=== PATIENT | male | born 1985 | race Caucasian/White ===

== ENCOUNTER → 2018-07-07 13:46 | Outpatient (CLI) | payer MEDICAID, SELFPAY ==
[2018-06-23 14:46] VITALS: BMI 32.0
[2018-06-27 13:50] LABS: Anion Gap 5 (5-15); BUN 12 mg/dL (7-18); BUN/Creat Ratio 13.4 RATIO (10-20); Chloride 108 mmol/L (98-107); Creatinine, Serum 0.89 mg/dL (0.70-1.30); EST Glomerular Filtration Rate 104 mL/min (>60); Est Glom Filt Rate - Afr Amer 125 mL/min (>60); Glucose 101 mg/dL (74-106); Potassium 4.4 mmol/L (3.5-5.1); Sodium Level 140 mmol/L (136-145)
--- NOTE | 2018-07-07 13:48 | CT_ITS ---
STUDY: CT ABDOMEN AND PELVIS WITH CONTRAST REASON FOR EXAM: Male, 33 years old. Left lower quadrant pain for several years. RADIATION DOSAGE (If Supplied By Facility): CTDIvol = ( 16.33 ) mGy, DLP = ( 1285.80 ) mGycm TECHNIQUE: Transaxial images were obtained from the dome of the diaphragm to the symphysis pubis without oral contrast. 100 ml of Isovue 300 contrast was administered. Sagittal and coronal images were reconstructed. Individualized dose optimization techniques were used for this CT. COMPARISON: None. FINDINGS: Body wall soft tissues: No acute process. Osseous structures: No acute process. Inferior chest: No acute process. Hepatobiliary: Normal. Pancreas: No acute process. Spleen: Normal. Adrenal glands: Normal. Urogenital: Normal kidneys with normal extrarenal pelvises. Normal collecting systems, ureters, urinary bladder, prostate and seminal vesicles. Pelvic floor and sidewalls and retroperitoneum: No mass or adenopathy. Vasculature: No acute process. Stomach: No acute process. Small bowel and mesentery: No acute process. Large bowel: Normal appendix. Moderately prominent distributed stool burden of large bowel. Correlate for constipation. No evidence of colitis or diverticulitis. Normal rectum. Free fluid or free air: None. CT/Abdomen/Pelvis WITH Contrast IMPRESSION: No acute abdominopelvic process is evident. Electronically Signed: Cesar Escobar MD at 9:42 EST Tel , Service support ,
== END ==
PROVIDERS: Family Provider Family Medicine; PCP Family Medicine; Referring Provider Family Medicine; Visit Provider Family Medicine
DX: R10.32 Left lower quadrant pain (principal)
CPT/HCPCS: 36415; 74177; 80048; Q9967

== ENCOUNTER 2021-04-25 15:46 | Emergency (ER) | payer MEDICAID, SELFPAY ==
[2021-04-25 15:47] VITALS: BP 165/103; PULSE 90; PULSE 95; RESP 16; TEMP 36.7; O2SAT 100; BMI 33.2
--- NOTE | 2021-04-25 16:35 | EDS_ITS ---
HPI History of Present Illness Chief Complaint: Lower Extremity Injury Narrative Narrative: 35-year-old male presenting with left gluteal pain which radiates down the posterior hamstring. Patient states this has been a problem for 3 days. 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 Patient states he carries his wallet in his left pocket. Patient states he was seen at urgent care and they started to tell him about the possibility of infection and he became anxious. He does have a history of anxiety. Patient's blood pressures were elevated there and then came back down to normal. Patient states he feels much better. Patient does admit that he might of had some burning in his urine yesterday but has no history of kidney stones, hematuria. He is not had any fever or chills. Patient denies any trauma or injury. PFSH PFS Medical History Anxiety Back problem Bone fracture Esophageal ulcer History of forearm fracture Seasonal allergies Home Medications alprazolam 0.5 mg tablet 0.5 mg PO DAILY PRN #5 tab 11/18/18 [Rx Last Taken Unknown] cyclobenzaprine 10 mg PO TID PRN #20 tablet 04/25/21 [Rx Last Taken Unknown] ibuprofen 200 mg capsule 200 mg PO Q6H PRN 04/25/21 [History Last Taken Unknown] naproxen 500 mg PO BID PRN #20 tab 04/25/21 [Rx Last Taken Unknown] Allergy/AdvReac Type Severity Reaction Status Date / Time clindamycin Allergy Mild stomach Verified 04/25/21 14:42 issues Family History Aunt Alcoholism Breast cancer Depression Grandfather Cancer Myocardial infarction Uncle Cancer Father Hypertension Surgical History History of hernia repair Social History Smoking Status: Former smoker how long ago did patient quit smokin alcohol intake: current alcohol intake frequency: a few times a week substance use type: does not use what type of physical activity do you participate in: bicycling ROS ROS ED Constitutional Constitutional ED: Denies chills or fever(s) Eyes Eyes: Denies blurry vision or change in vision ENT ENT ED: Denies rhinorrhea or sore throat Cardiovascular Cardiovascular: Reports palpitations; Denies chest pain Respiratory/Chest Respiratory/Chest: Denies cough or dyspnea Gastrointestinal Gastrointestinal: Denies abdominal pain, nausea or vomiting Genitourinary Genitourinary ED: Reports dysuria; Denies hematuria or urinary frequency Musculoskeletal Musculoskeletal: Reports other Details: Left gluteal pain radiating down the left hamstring Integumentary Denies Abrasions or rash Neurologic Neurologic: Reports paresthesias LLE; Denies headache(s) Psychiatric Psychiatric: Reports anxiety; Denies depression EXAM Physical Exam Const Vital Signs: 04/25/21 15:47 04/25/21 18:40 Temperature 98.1 F Temperature Source Temporal Pulse Rate 95 Respiratory Rate 16 Blood Pressure 165/103 H 153/100 H Blood Pressure Mean 123 117 Pulse Ox 100 Oxygen Delivery Method Room Air Positive well nourished General Appearance ED: NAD HEENT Reports moist mucous membranes normocephalic and atraumatic Eyes PERRL Resp normal respiratory effort and clear to auscultation bilaterally Cardio regular rate and regular rhythm Back/Spine no CVA tenderness Lumbar Spine / Lower Back: lumbar spinal tenderness Extremity Extremity Narrative: Tenderness to palpation over the left gluteal muscle. Patient has difficulty standing secondary to muscle spasm in this area. He can bear weight. Neuro oriented x3, CN's II-XII intact bilaterally and moves all extremities Sensorium / Orientation: alert Motor Exam: strength 5/5 throughout Psych mental status grossly normal Skin Lesions: no lesions Rashes: no rashes MDM MDM MDM Narrative Medical decision making narrative: Patient presenting with what appears to be howard sciatic pain. I am able to reproduce this. Patient having typical pain radiation down the posterior thigh on the left. Patient does report that he was sweaty and nauseous at the urgent care office. I did check a urinalysis which showed a small amount of occult blood. For this reason CT of the abdomen pelvis was performed. This does not show any acute kidney stone. Patient initially treated with Norflex and Toradol. He states his pain was still present he was given a dose of IM morphine. Patient counseled he will be discharged home on cyclobenzaprine and Naprosyn. He is to continue with stretching and icing as needed. I recommended he follow-up with his primary care provider to ensure re solution. Impression: 1. Sciatica 2. Hematuria Lab Data Attestation: I reviewed the patient's lab results. Labs: Laboratory Results - last 24 hr 04/25/21 17:34 Urine Color Yellow Urine Clarity Clear Urine pH 6.5 Ur Specific [place] 1.010 Urine Protein Negative Urine Glucose (UA) Normal Urine Ketones Negative Urine Occult Blood 25 H Urine Nitrite Negative Urine Bilirubin Negative Urine Urobilinogen Normal Ur Leukocyte Esterase Negative Urine RBC 0 SEEN Urine WBC 0 SEEN Ur Squamous Epith Cells 0 SEEN Urine Bacteria 0 SEEN Urine Mucus 0 SEEN Radiography Diagnostic Testing: Clinical Impression(s) from Imaging Studies Abdomen/Pelvis CT 04/25/21 18:13 IMPRESSION: Normal abdomen without acute disease. Electronically Signed: Óscar Parsons MD at 19:10 EDT Tel , Service support , Discharge Plan Triage Chief Complaint: Lower Extremity Injury ED Provider: Amando Antoine Dx/Rx/DC Orders Instructions: ED Hematuria, ED Sciatica Prescriptions: New cyclobenzaprine 10 mg tablet 10 mg PO TID PRN (Reason: Muscle Spasm) Qty: 20 RF: 0 naproxen 500 mg tablet 500 mg PO BID PRN (Reason: pain) Qty: 20 RF: 0 No Action alprazolam [Xanax] 0.5 mg tablet 0.5 mg PO DAILY PRN (Reason: anxiety) Qty: 5 RF: 0 ibuprofen 200 mg capsule 200 mg PO Q6H PRNRF: 0 Primary Care Provider: Jamshid Orellana Referrals: Jamshid Orellana, DO [Primary Care Provider] - Disposition Disposition: Home, Self Care
[2021-04-25] MEDS: Orphenadrine 60 MG/2 ML Ampul IM (17:28)
[2021-04-25] MEDS: Ketorolac 15 MG/ML Vial IM (17:29)
[2021-04-25 17:39] LABS: Bacteria 0 SEEN /hpf (None Seen); Mucous, Urine 0 SEEN /hpf (<or=2+); Red Blood Cells-Urine 0 SEEN /hpf (0-5); Squamous Epithelial Cells - UA 0 SEEN /hpf (0-5); White Blood Cells 0 SEEN /hpf (0-5)
[2021-04-25 17:44] LABS: Color, Urine Yellow (Yellow); Glucose, Dipstick Normal (Normal); Ketone-Dipstick Negative (Negative); Leukocyte Esterase-Dipstick Negative /ul (Negative); Nitrite-Dipstick Negative (Negative); Occult Blood-Urine 25 /ul (Negative); Protein-Dipstick Negative (Negative); Urine Bilirubin Dipstick Negative (Negative); Urine Clarity Clear (Clear); Urine Urobilinogen Normal (Normal); Urine pH 6.5 (5.0 - 8.0)
--- NOTE | 2021-04-25 18:13 | CT_ITS ---
STUDY: CT ABDOMEN AND PELVIS WITHOUT CONTRAST REASON FOR EXAM: Male, 35 years old. Left flank pain and microscopic hematuria RADIATION DOSAGE (If Supplied By Facility): CTDIvol = ( 15.95 ) mGy, DLP = ( 860.94 ) mGycm TECHNIQUE: Transaxial images were obtained from the dome of the diaphragm to the symphysis pubis without oral contrast, and without intravenous contrast. Sagittal and coronal images were reconstructed. Individualized dose optimization techniques were used for this CT. COMPARISON: 07 July 2018 FINDINGS: The visualized lung bases are unremarkable. The visualized portions of the heart are within normal limits. Normal liver. Normal gallbladder and extrahepatic biliary system. Normal spleen. Normal pancreas. Normal bilateral adrenal glands. 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 Renal parenchyma is normal. Normal visualized stomach. Normal small intestine. Normal colon. Appendix is normal and contains an appendicolith. Normal abdominal aorta. Normal inferior vena cava. Normal retroperitoneum. Normal urinary bladder. Normal abdominal wall. Normal osseous structures. There are early degenerative changes in the lumbar spine and a benign L4 hemangioma. CT/Abdomen/Pelvis without Cont IMPRESSION: Normal abdomen without acute disease. Electronically Signed: Óscar Parsons MD at 19:10 EDT Tel , Service support ,
[2021-04-25 18:40] VITALS: BP 153/100
[2021-04-25] MEDS: Morphine 4 MG/ML Syringe IM (19:27)
== END 2021-04-25 19:50 | disposition home or self-care (01) ==
PROVIDERS: Emergency Provider Student in an Organized Health Care Education/Training Program; PCP Family Medicine
DX: M54.42 Lumbago with sciatica, left side (principal); R31.29 Other microscopic hematuria; F41.9 Anxiety disorder, unspecified; Z79.899 Other long term (current) drug therapy; Z87.891 Personal history of nicotine dependence
CPT/HCPCS: 74176; 81001; 96372; 99282

== ENCOUNTER 2021-08-13 09:42 | Outpatient (CLI) | payer MEDICAID, SELFPAY ==
[2021-08-13 12:14] LABS: Absolute Lymphocyte Count 2.49 X10^3/uL (0.83-4.51); Basophil# 0.04 X10^3/uL; Basophil% 0.5 % (0-1); Eosinophil# 0.16 X10^3/uL; Eosinophils% 2.2 % (0-5); Hematocrit 43.2 % (40-54); Hemoglobin 14.5 g/dL (13.0-16.5); Lymphocyte # 2.49 X10^3/ul (0.83-4.51); Lymphocyte % 33.9 % (19-41); Mean Corp Hgb Conc 33.6 g/dL (32-36); Mean Corpuscular Hgb 31.6 pg (27.0-32.0); Mean Corpuscular Volume 94.1 fL (80-94); Mean Platelet Vol. 9.6 fl (6.2-12.0); Monocyte% 8.2 % (0-10); NRBC Flagged by Analyzer 0 % (0-5); Neutrophil # 4.04 X10^3/uL (2.7-7.7); Neutrophil % 54.9 % (47-70); Platelet Count 284 K/mm3 (150-450); RBC Distribution Width CV 12.5 % (11.6-14.6); RBC Distribution Width SD 43.3 fl (35.1-43.9); Red Blood Count 4.59 M/mm3 (4.6-6.2); White Blood Count 7.4 K/mm3 (4.4-11.0)
[2021-08-13 12:28] LABS: ALB/GLOB Ratio 1.1 RATIO (0.9-2.4); AST(SGOT) 17 U/L (15-37); Alanine Aminotransfer ALT/SGPT 40 U/L (16-61); Albumin, Serum 4.1 g/dL (3.2-5.0); Alkaline Phosphatase 57 U/L (45-117); Anion Gap 9 (5-15); BUN 17 mg/dL (7-18); BUN/Creat Ratio 18.7 RATIO (10-20); Calcium,Total 9.4 mg/dL (8.5-10.1); Chloride 105 mmol/L (98-107); Creatinine, Serum 0.91 mg/dL (0.70-1.30); EST Glomerular Filtration Rate 100 mL/min (>60); Est Glom Filt Rate - Afr Amer 121 mL/min (>60); Globulin 3.8 g/dL (2.2-4.2); Glucose 109 mg/dL (74-106); Potassium 4.1 mmol/L (3.5-5.1); Protein, Total 7.9 g/dL (6.4-8.2); Sodium Level 139 mmol/L (136-145)
== END 2021-08-13 23:59 | disposition short-term general hospital (02) ==
LOC: BIMLAB 09:43
PROVIDERS: PCP Family Medicine; Referring Provider Family Medicine; Visit Provider Family Medicine
DX: I10 Essential (primary) hypertension (principal)
CPT/HCPCS: 36415; 80053; 85025

== ENCOUNTER → 2022-11-05 | Outpatient (CLI) | payer MEDICAID, SELFPAY ==
[2022-11-05 16:36] LABS: Absolute Lymphocyte Count 1.85 X10^3/uL (0.83-4.51); Absolute Neutrophil Count 4.1 X10^3/uL (2.0-7.7); Basophil# 0.03 X10^3/uL; Basophil% 0.5 % (0-1); Eosinophil# 0.05 X10^3/uL; Eosinophils% 0.8 % (0-5); Hematocrit 46.9 % (40-54); Hemoglobin 15.6 g/dL (13.0-16.5); Lymphocyte # 1.85 X10^3/ul (0.83-4.51); Lymphocyte % 28.4 % (19-41); Mean Corp Hgb Conc 33.3 g/dL (32-36); Mean Corpuscular Hgb 31.8 pg (27.0-32.0); Mean Corpuscular Volume 95.5 fL (80-94); Mean Platelet Vol. 9.1 fl (6.2-12.0); Monocyte# 0.44 X10^3/uL; Monocyte% 6.7 % (0-10); NRBC Flagged by Analyzer 0 % (0-5); Neutrophil # 4.13 X10^3/uL (2.7-7.7); Neutrophil % 63.3 % (47-70); Platelet Count 261 K/mm3 (150-450); RBC Distribution Width CV 12.6 % (11.6-14.6); RBC Distribution Width SD 43.8 fl (35.1-43.9); Red Blood Count 4.91 M/mm3 (4.6-6.2); White Blood Count 6.5 K/mm3 (4.4-11.0)
[2022-11-05 17:06] LABS: Vitamin B12 416 pg/mL (211-911); Vitamin D,25 Hydroxy 25.6 ng/mL
[2022-11-05 17:12] LABS: ALB/GLOB Ratio 1.2 RATIO (0.9-2.4); AST(SGOT) 18 U/L (15-37); Alanine Aminotransfer ALT/SGPT 37 U/L (16-61); Albumin, Serum 4.6 g/dL (3.2-5.0); Alkaline Phosphatase 44 U/L (45-117); Anion Gap 4 (5-15); BUN 13 mg/dL (7-18); BUN/Creat Ratio 14.3 RATIO (10-20); Calcium,Total 9.7 mg/dL (8.5-10.1); Chloride 104 mmol/L (98-107); Creatinine, Serum 0.91 mg/dL (0.70-1.30); EST Glomerular Filtration Rate 99 mL/min (>60); Est Glom Filt Rate - Afr Amer 119 mL/min (>60); Globulin 3.9 g/dL (2.2-4.2); Glucose 111 mg/dL (74-106); Magnesium 2.3 mg/dL (1.6-2.6); Protein, Total 8.5 g/dL (6.4-8.2); Sodium Level 135 mmol/L (136-145); Thyroid Stim Hormone (TSH) 1.03 uIU/mL (0.358-3.74)
== END | disposition home or self-care (01) ==
LOC: BIMLAB 15:22
PROVIDERS: PCP Family Medicine; Referring Provider Nurse Practitioner Family; Visit Provider Nurse Practitioner Family
DX: E56.9 Vitamin deficiency, unspecified (principal); F41.9 Anxiety disorder, unspecified; R25.2 Cramp and spasm
CPT/HCPCS: 36415; 80053; 82306; 82607; 83735; 84443; 85025

== ENCOUNTER → 2024-09-14 | Outpatient (CLI) | payer MEDICAID, SELFPAY ==
[2024-09-14 15:46] LABS: Bacteria 0 SEEN /hpf (None Seen); Mucous, Urine 0 SEEN /hpf (<or=2+); White Blood Cells 0 SEEN /hpf (0-5)
[2024-09-14 16:52] LABS: Color, Urine Yellow (Yellow); Glucose, Dipstick Normal (Normal); Ketone-Dipstick Negative (Negative); Leukocyte Esterase-Dipstick Negative /ul (Negative); Nitrite-Dipstick Negative (Negative); Occult Blood-Urine 25 /ul (Negative); Protein-Dipstick Negative (Negative); Specific Gravity, Urine 1.025 (1.002-1.030); Urine Bilirubin Dipstick Negative (Negative); Urine Clarity Clear (Clear); Urine Urobilinogen Normal (Normal)
[2024-09-14 17:26] LABS: Red Blood Cells-Urine 0-5 SEEN /hpf (0-5); Squamous Epithelial Cells - UA 0-5 SEEN /hpf (0-5)
== END | disposition home or self-care (01) ==
LOC: LABSPEC 15:45
PROVIDERS: PCP Family Medicine; Referring Provider Family Medicine; Visit Provider Family Medicine
DX: N45.1 Epididymitis (principal)
CPT/HCPCS: 81001; 87491; 87591

== ENCOUNTER → 2024-11-15 | Outpatient (CLI) | payer MEDICAID, SELFPAY ==
[2024-11-15 17:11] LABS: ALB/GLOB Ratio 1.7 RATIO (0.9-2.4); AST(SGOT) 33 U/L (<=37); Alanine Aminotransfer ALT/SGPT 60 U/L (<=46); Albumin, Serum 4.8 g/dL (3.5-5.0); Alkaline Phosphatase 41 U/L (40-129); Anion Gap 14 (5-15); BUN 15 mg/dL (4-19); BUN/Creat Ratio 17.4 RATIO (10-20); Calcium,Total 10.3 mg/dL (7.6-11.0); Carbon Dioxide 22.6 mmol/L (21.0-32.0); Chloride 103 mmol/L (98-108); Creatinine, Serum 0.85 mg/dL (0.70-1.20); EST Glomerular Filtration Rate 113 (>60); Globulin 2.8 g/dL (2.2-4.2); Glucose 117 mg/dL (70-99); Potassium 4.2 mmol/L (3.3-5.1); Protein, Total 7.7 g/dL (5.9-8.4); Sodium Level 139 mmol/L (133-145); Total Bilirubin 0.44 mg/dL (0.00-1.30)
== END | disposition home or self-care (01) ==
LOC: BIMLAB 14:23
PROVIDERS: PCP Family Medicine; Referring Provider Physician Assistant; Visit Provider Physician Assistant
DX: I10 Essential (primary) hypertension (principal)
CPT/HCPCS: 36415; 80053

== ENCOUNTER → 2025-05-09 | Outpatient (CLI) | payer MEDICAID, SELFPAY ==
--- NOTE | 2025-05-09 10:48 | US_ITS ---
PROCEDURE: US/Abdomen Limited
== END | disposition home or self-care (01) ==
LOC: US 10:45
PROVIDERS: PCP Family Medicine; Referring Provider Physician Assistant; Visit Provider Physician Assistant
DX: R10.11 Right upper quadrant pain (principal)
CPT/HCPCS: 36415; 76705; 80053; 85025

== ENCOUNTER → 2025-05-09 | Outpatient (CLI) | payer MEDICAID, SELFPAY ==
[2025-05-09 13:15] LABS: Hematocrit 42.7 % (40-54); Hemoglobin 14.6 g/dL (13.0-16.5); Immature Granulocytes Count 0.020 X10^3/uL (0.0-0.0); Mean Corp Hgb Conc 34.2 g/dL (32-36); Mean Corpuscular Volume 94.3 fL (80-94); Mean Platelet Vol. 9.6 fl (6.2-12.0); NRBC Flagged by Analyzer 0 % (0-5); Platelet Count 269 K/mm3 (150-450); RBC Distribution Width CV 11.9 % (11.6-14.6); RBC Distribution Width SD 41.7 fl (35.1-43.9); Red Blood Count 4.53 M/mm3 (4.6-6.2); White Blood Count 7.3 K/mm3 (4.4-11.0)
[2025-05-09 13:51] LABS: AST(SGOT) 38 U/L (<=37); Alanine Aminotransfer ALT/SGPT 56 U/L (<=46); Albumin, Serum 4.8 g/dL (3.5-5.0); Alkaline Phosphatase 61 U/L (40-129); Anion Gap 12 (5-15); BUN 12 mg/dL (4-19); BUN/Creat Ratio 15.1 RATIO (10-20); Calcium,Total 9.8 mg/dL (7.6-11.0); Carbon Dioxide 24.4 mmol/L (21.0-32.0); Chloride 104 mmol/L (98-108); Globulin 2.8 g/dL (2.2-4.2); Glucose 109 mg/dL (70-99); Potassium 4.2 mmol/L (3.3-5.1)
== END | disposition home or self-care (01) ==
LOC: LAB 11:41
PROVIDERS: PCP Family Medicine; Referring Provider Physician Assistant; Visit Provider Physician Assistant
DX: R10.11 Right upper quadrant pain (principal)
CPT/HCPCS: 36415; 80053; 85025

== ENCOUNTER → 2025-06-04 | Outpatient (CLI) | payer MEDICAID, SELFPAY ==
--- NOTE | 2025-06-04 12:49 | NM_ITS ---
PROCEDURE: HEPATOBILLIARY IMG W/PHARM INT 06/04/2025 REASON FOR EXAM: ABDOMINAL PAIN Right upper quadrant pain. TECHNIQUE: Procedure Code: [id number] Modality: NM Procedure: HEPATOBILLIARY IMG W/PHARM INT, with gallbladder ejection fraction, as well. Intravenous Choletec with planar imaging of the abdomen. RADIOPHARMACEUTICAL: Intravenous administration of 5.6 mCi technetium 99 M mebrofenin. For the gallbladder ejection component of the examination, intravenous administration of 2.0 cholecystokinin over 15 minutes. COMPARISON: None. FINDINGS: Satisfactory hepatic uptake and excretion was seen. Normal gallbladder visualization with the gallbladder identified by 15 minutes. Small bowel activity was also seen by the 15 minute timeframe. A normal gallbladder ejection fraction of 86% was seen of the 28 minute timeframe. NM/Hepatobilliary Img w/Pharm Int IMPRESSION: 1. Normal gallbladder ejection fraction of 86%. 2. Negative hepatobiliary scan. Reading Location: [id number]
== END | disposition home or self-care (01) ==
LOC: NM 12:44
PROVIDERS: PCP Family Medicine; Referring Provider Physician Assistant; Visit Provider Physician Assistant
DX: R10.11 Right upper quadrant pain (principal)
CPT/HCPCS: 78227; A9537; J2805